=== PATIENT | female | born 1950 | race African-American/Black ===

== ENCOUNTER 2018-01-29 16:09 | Emergency (ER) | payer OTHER, MEDICARE ==
[~2018-01-29] VITALS: Ht 170.2 cm; Wt 75.0 kg
[~2018-01-29 16:09] MED LIST: FLEXERIL10 MG PO
[2018-01-29] MEDS ORDERED: TRAMADOL HYDROC50 MG PO (17:31)
[2018-01-29] MEDS ORDERED: FLEXERIL5 M1 PO (17:31)
[2018-01-29 17:35] VITALS: BP 122/76
== END 2018-01-29 17:40 | disposition home or self-care (01) | DRG 552 ==
LOC: ED 16:09
DX: S16.1XXA Strain of muscle, fascia and tendon at neck level, initial encounter (principal); I10 Essential (primary) hypertension; V49.40XA Driver injured in collision with unspecified motor vehicles in traffic accident, initial encounter

== ENCOUNTER 2019-03-01 13:34 | Day surgery (SDC) | payer MEDICARE ==
[~2019-03-01 13:34] MED LIST changes: +ADVIL200 MG PO; +FLEXERIL5 M1 PO; +RAYOS5 MG PO; +TRAMADOL HYDROC50 MG PO
[2019-03-01 16:04] VITALS: BP 136/79
== END 2019-03-01 16:18 | disposition home or self-care (01) ==
LOC: ENDO 13:34
PROVIDERS: ATTEND Internal Medicine Gastroenterology
PROC: 0DBN8ZX Excision of Sigmoid Colon, Via Natural or Artificial Opening Endoscopic, Diagnostic (ICD-10-PCS; principal; 2019-03-01)
DX: Z12.11 Encounter for screening for malignant neoplasm of colon (principal); D12.7 Benign neoplasm of rectosigmoid junction; K57.30 Diverticulosis of large intestine without perforation or abscess without bleeding; K64.8 Other hemorrhoids; K64.4 Residual hemorrhoidal skin tags; M32.9 Systemic lupus erythematosus, unspecified